=== PATIENT | female | born 1935 | race Caucasian/White ===

== ENCOUNTER 2016-06-05 13:06 | Outpatient (CLI) | payer MEDICARE, OTHER ==
[~2016-06-05] VITALS: Ht 154.9 cm; Wt 73.9 kg
--- OUTSIDE RECORDS SUMMARY | 2016-06-05 13:08 | XMS REPORT | Continuity of Care Document ---
Author Author [facility] Organization [facility] Address Unknown Phone Unavailable Care Team Providers Care System Support Developer Name Role Phone NO, LOCAL PHYSICIAN PCP Unavailable Insurance Providers Payer Name Policy Number Subscriber Name Relationship [employer] [id number] Keren Robins 18 Self / Same As Patient [facility] [id number] Keren Robins 18 Self / Same As Patient Advance Directives Directive Response Recorded Date/Time Advance Directives No 01/17/16 1:27pm Health Care Power of Assistant Professor Nurse Education No 01/17/16 1:27pm Organ Donor No 01/17/16 1:27pm Resuscitation Status Full Code 01/17/16 1:27pm Problems No problem information available. Medications No medication information available. Social History Social History Problem Response Recorded Date/Time Recent Foreign Travel No 01/17/2016 1:28pm Recent Infectious Disease Exposure No 01/17/2016 1:28pm Hospital Discharge Instructions No hospital discharge instructions. Plan of Care Discharge Date 01/17/16 2:46pm Instructions/Education Provided DR. SMYTH-POST EPIDURAL INST Prescriptions See Medication Section Functional Status No functional status results. Allergies, Adverse Reactions, Alerts No allergy information available. Immunizations No immunization records. Vital Signs Acute Vital Signs Vital Response Date/Time Temperature (Fahrenheit) 97.6 degrees F (97.6 - 99.5) 01/17/2016 1:33pm Temperature (Calculated Celsius) 36.35776 degrees C (36.4 - 37.5) 01/17/2016 1:33pm Temperature Source Tympanic 01/17/2016 1:33pm Pulse Rate (adult) 87 bpm (60 - 90) 01/17/2016 2:45pm Respiratory Rate 16 bpm (12 - 24) 01/17/2016 2:45pm O2 Sat by Pulse Oximetry 98 % (88 - 100) 01/17/2016 2:45pm Blood Pressure 151/81 mm Hg 01/17/2016 2:45pm Blood Pressure Mean 93 mm Hg 01/17/2016 1:33pm Pain Numeric Pain Scale 6 01/17/2016 2:45pm Height (Feet) 5 feet 01/17/2016 1:33pm Height (Inches) 1.00 inches 01/17/2016 1:33pm Height (Calculated Centimeters) 154.223734 cm 01/17/2016 1:33pm Weight (Pounds) 163 pounds 01/17/2016 1:33pm Weight (Ounces) 0.0 oz 01/17/2016 1:33pm Weight (Calculated Grams) 23700.56 gm 01/17/2016 1:33pm Weight (Calculated Kilograms) 73.389746 kilograms 01/17/2016 1:33pm Calculated BMI 30.8 01/17/2016 1:33pm Results No known relevant diagnostic tests, laboratory data and/or discharge summary. Procedures No known history of procedures. Encounters Encounter Location Arrival/Admit Date Discharge/Depart Date Attending Provider Departed Clinic [facility] 01/17/16 1:17pm 01/17/16 2: 46pm JUDAH SMYTH MD
[2016-06-05] MEDS ORDERED: LIDOCAINE 1% INJ 20 ML (XYLOCAINE) VIAL ONE (13:31)
[2016-06-05] MEDS ORDERED: TRIAMCINOLONE ACET (KENALOG-40) 40 MG/ML 1 ML VIAL ONE (13:31)
[2016-06-05] MEDS ORDERED: BUPIVACAINE 0.25% 30 ML (SENSORCAINE) VIAL ONE (13:31)
[2016-06-05 13:35] VITALS: BP 151/93
[2016-06-05 14:10] VITALS: BP 195/103
--- NOTE | 2016-06-05 14:43 | Pain Medicine-Procedure ---
Procedure Pre-Op/Post-Op Diagnosis Diagnosis: sacrococcygeal disorder Indications for Operation Hip pain Attending Surgeon Blaire Procedure Date of Service: Jun 05, 2016 Procedure: Flouroscopic guided bilateral sacroiliac joint injection PROCEDURE IN DETAIL: After obtaining informed consent from the patient, the patient's chart was reviewed. The patient was then brought to the procedure room and placed in the prone position. A time out was performed. The back was prepped with antiseptic solution and under fluoroscopic guidance the patient's sacroiliac joint on both sides was identified. Attention was first turned to the right sacroiliac joint injection where 2 mL's of 1% lidocaine was used to anesthetize the skin and then two 22-gauge 3.5 inch spinal needles were inserted and advanced under flouroscopic guidance until they were in the lower 1 /3 of the right sacroiliac joint. Next, attention was then turned to the left sacroiliac joint injection where 2 mL's of 1% lidocaine was used to anesthetize the skin and then two 22-gauge 3.5 inch spinal needles were inserted and advance under flouroscopic guidance until they were in the lower 1/3 of the sacroiliac joint on the left side. After negative aspiration, each needle was injected with 40 mg of Kenalog along with 2 mL's of 0.25% marcaine. All needles were then flushed with 1% lidocaine and then removed. Band-Aids were applied to all the sites and the patient tolerated the procedure well and was taken to the recovery area in stable condition. Complications None JUDAH SMYTH MD Jun 05, 2016 2:43 pm
== END 2016-06-05 14:12 | disposition home or self-care (01) ==
LOC: CARD 13:06
PROVIDERS: ATTEND Pain Medicine Pain Medicine
DX: M53.3 Sacrococcygeal disorders, not elsewhere classified (principal)
CPT/HCPCS: 27096

== ENCOUNTER 2016-08-25 08:02 | Outpatient (CLI) | payer MEDICARE, OTHER ==
[~2016-08-25] VITALS: Ht 154.9 cm; Wt 77.1 kg
[2016-08-25] MEDS ORDERED: BUPIVACAINE 0.25% 30 ML (SENSORCAINE) VIAL ONE (08:06)
[2016-08-25] MEDS ORDERED: TRIAMCINOLONE ACET (KENALOG-40) 40 MG/ML 1 ML VIAL ONE (08:06)
[2016-08-25] MEDS ORDERED: LIDOCAINE 1% INJ 20 ML (XYLOCAINE) VIAL ONE (08:06)
[2016-08-25 08:24] VITALS: BP 140/91
[2016-08-25 08:47] VITALS: BP 156/91
--- NOTE | 2016-08-25 12:36 | Pain Medicine-Procedure ---
Procedure Pre-Op/Post-Op Diagnosis Diagnosis: sacrococcygeal disorder Indications for Operation Hip pain Attending Surgeon Blaire Procedure Date of Service: August 25, 2016 Procedure: Flouroscopic guided bilateral sacroiliac joint injection PROCEDURE IN DETAIL: After obtaining informed consent from the patient, the patient's chart was reviewed. The patient was then brought to the procedure room and placed in the prone position. A time out was performed. The back was prepped with antiseptic solution and under fluoroscopic guidance the patient's sacroiliac joint on both sides was identified. Attention was first turned to the right sacroiliac joint injection where 2 mL's of 1% lidocaine was used to anesthetize the skin and then two 22-gauge 3.5 inch spinal needles were inserted and advanced under flouroscopic guidance until they were in the lower 1 /3 of the right sacroiliac joint. Next, attention was then turned to the left sacroiliac joint injection where 2 mL's of 1% lidocaine was used to anesthetize the skin and then two 22-gauge 3.5 inch spinal needles were inserted and advance under flouroscopic guidance until they were in the lower 1/3 of the sacroiliac joint on the left side. After negative aspiration, each needle was injected with 40 mg of Kenalog along with 2 mL's of 0.25% marcaine. All needles were then flushed with 1% lidocaine and then removed. Band-Aids were applied to all the sites and the patient tolerated the procedure well and was taken to the recovery area in stable condition. Complications None JUDAH SMYTH MD August 25, 2016 12:36 pm
== END 2016-08-25 08:48 ==
LOC: CARD 08:02
PROVIDERS: ATTEND Pain Medicine Pain Medicine
DX: M53.3 Sacrococcygeal disorders, not elsewhere classified (principal)
CPT/HCPCS: 27096